=== PATIENT | female | born 1940 | race Caucasian/White ===

== ENCOUNTER 2016-03-04 16:45 | Emergency (ER) | payer MEDICARE ==
[~2016-03-04] VITALS: Ht 157.5 cm; Wt 93.6 kg
[~2016-03-04 16:45] MED LIST: ALIG4CAP PO; CITRTAB7 PO; LACTCAP8 PO; METO50TA PO; POTA10CA PO
[2016-03-04 16:48] VITALS: BP 177/93; PULSE 78; RESP 18; TEMP 98.9; O2SAT 94
[2016-03-04] MEDS ORDERED: DEXT1CAP5 PO (17:05)
--- NOTE | 2016-03-04 17:05 | PD ---
HPI Chief Complaint: Respiratory Symptoms Time Seen by Provider: 16:56 Travel History International Travel<30 days: No Contact w/Intl Traveler<30days: No Traveled to known affect area: No History of Present Illness HPI 75 year-old woman presents emergency department complaining of cough. She states that she's had cough for the past several days and felt poorly. No fevers or chills. No chest pain. No trouble breathing. No history of lung disease. History Past Medical History Narrative Medical From patient: Lymphedema Fibromyalgia Hypertension : 2 Para: 2 Social History Alcohol Use: No Tobacco Use: No Allergies-Medications (Allergen,Severity, Reaction): Coded Allergies: Markle (Verified Allergy, Severe, 03/04/16) Aspirin (Verified Allergy, Severe, 03/04/16) Cat Dander (Verified Allergy, Severe, 03/04/16) Coffee (Verified Allergy, Severe, 03/04/16) Egg Yolk (Verified Allergy, Severe, 03/04/16) Gluten (Verified Allergy, Severe, 03/04/16) Grass (Verified Allergy, Severe, 03/04/16) Iodine (Verified Allergy, Severe, 03/04/16) Morphine (Verified Allergy, Severe, 03/04/16) Penicillin (Verified Allergy, Severe, 03/04/16) Shellfish (Verified Allergy, Severe, 03/04/16) UNKNOWN Histamine H2 Receptor Antagonist (Verified Allergy, Unknown, 03/04/16) UNKNOWN ANTIBIOTICS (Verified Adverse Reaction, Intermediate, MAKES HER VOMIT, 02/06) Advil (Verified Adverse Reaction, Intermediate, 03/04/16) NOSEBLEEDS Uncoded Allergies: beatriz (Allergy, Severe, 10/25/11) Reported Meds & Prescriptions Reported Meds & Active Scripts Active Reported Metoprolol Tartrate 50 Mg Tab 50 Mg PO HS Align (Lactobacillus Rhamnosus (GG)) 4 Mg Cap 4 Mg PO DAILY Potassium Chloride ER (Potassium Chloride) 10 Meq Cap 10 Meq PO DAILY Probiotic (Lactobacillus Acidophilus) 1 Cap Cap 1 Cap PO DAILY Citracal + D3 Maximum (Calcium Citrate-Vitamin D) 315-250 Mg-Unit Tab 1 Tab PO BID Review of Systems Except as stated in HPI: all other systems reviewed are Neg Physical Exam Narrative GENERAL: 75 year-old woman, no acute distress. SKIN: Warm and dry. HEAD: Atraumatic. Normocephalic. EYES: Pupils equal and round. No scleral icterus. No injection or drainage. ENT: No nasal bleeding or discharge. Mucous membranes pink and moist. TMs normal. Throat normal. NECK: Trachea midline. No JVD. CARDIOVASCULAR: Regular rate and rhythm. No murmur appreciated. RESPIRATORY: No accessory muscle use. Clear to auscultation. Breath sounds equal bilaterally. GASTROINTESTINAL: Abdomen soft, non-tender, nondistended. Hepatic and splenic margins not palpable. MUSCULOSKELETAL: No obvious deformities. Chronic edema. NEUROLOGICAL: Awake and alert. No obvious cranial nerve deficits. Motor grossly within normal limits. Normal speech. Data Data Last Documented VS Vital Signs Date Time Temp Pulse Resp B/P Pulse Ox O2 Delivery O2 Flow Rate FiO2 03/04/16 16:56 99 Room Air 03/04/16 16:48 98.9 78 18 177/93 [facility] Medical Decision Making Medical Screen Exam Complete: Yes Emergency Medical Condition: Yes Differential Diagnosis URI, bronchitis, pneumonia, CHF, other Narrative Course 75 year-old woman with cough cold symptoms for 3 days, no evidence of pneumonia. Recommend supportive treatment. Diagnosis Primary Impression: URI (upper respiratory infection) Qualified Code: J06.9 - Viral upper respiratory tract infection Additional Instructions: Follow-up with her primary doctor if not feeling better in the next 7-10 days. Return emergency department for any trouble breathing or any other new or worsening symptoms. Use Robitussin-DM as needed for cough. Med/Other Pt SpecificInfo: Prescription(s) given Scripts Dextromethorphan-Guaifenesin (Robitussin Cough Chest Congestion)10-200 Mg Cap1 Cap PO Q6H PRN (CHEST CONGESTION AND/OR COUGH) #20 CAP Ref 0 Prov:Blu Oneal MD 03/04/16 Disposition: 01 DISCHARGE HOME Condition: Stable Blu Oneal MD Mar 04, 2016 17:05
[2016-03-04] MEDS ORDERED: OMEP20TA PO (17:07)
== END 2016-03-04 17:20 | disposition home or self-care (01) ==
LOC: PHED 16:45
DX: J06.9 Acute upper respiratory infection, unspecified (principal)
CPT/HCPCS: 99283

== ENCOUNTER → 2016-04-12 | Outpatient (CLI) | payer MEDICARE ==
[~2016-04-12] MED LIST changes: -ALIG4CAP PO; -CITRTAB7 PO; +DEXT1CAP5 PO; -LACTCAP8 PO; +OMEP20TA PO
[2016-04-12 12:41] LABS: BASOPHIL # 0.1 TH/MM3 (0-0.2); BASOPHIL % 1.3 % (0.0-2.0); EOSINOPHIL # 0.2 TH/MM3 (0-0.4); EOSINOPHIL % 3.2 % (0.0-4.0); HEMATOCRIT 38.2 % (35.0-46.0); HEMO FLAGS DIFF FINAL; LYMPHOCYTE # 2.7 TH/MM3 (1.0-4.8); MEAN CELL VOLUME 86.5 FL (80.0-100.0); MEAN CORPUSCULAR HEMOGLOBIN 29.3 PG (27.0-34.0); MEAN CORPUSCULAR HGB CONC 33.8 % (32.0-36.0); MONO % 6.4 % (0.0-8.0); NEUT % 47.1 % (16.0-70.0); PLATELET COUNT 342 TH/MM3 (150-450); RED BLOOD COUNT 4.42 MIL/MM3 (4.00-5.30); RED CELL DISTRIBUTION WIDTH 16.7 % (11.6-17.2); WHITE BLOOD COUNT 6.4 TH/MM3 (4.0-11.0)
[2016-04-12 12:52] LABS: ALT (GPT) 28 U/L (10-53); ANION GAP 9 MEQ/L (5-15); AST (GOT) 24 U/L (15-37); BICARBONATE 26.1 MEQ/L (21.0-32.0); BLOOD UREA NITROGEN 6 MG/DL (7-18); CHLORIDE 105 MEQ/L (98-107); GLOMERULAR FILTRATION RATE 62 ML/MIN (>89); GLUCOSE,FASTING 88 MG/DL (74-99); POTASSIUM 4.2 MEQ/L (3.5-5.1); SODIUM (NA) 140 MEQ/L (136-145)
[2016-04-12 13:02] LABS: ALKALINE PHOSPHATASE 63 U/L (45-117); HDL CHOLESTEROL 43.4 MG/DL (40.0-60.0); LDL CHOLESTEROL 106 MG/DL (0-99); TOTAL BILIRUBIN ADULT 0.4 MG/DL (0.2-1.0)
== END ==
LOC: PLAB 09:37
PROVIDERS: ATTEND Internal Medicine
DX: I10 Essential (primary) hypertension (principal); R53.83 Other fatigue; E78.2 Mixed hyperlipidemia
CPT/HCPCS: 36415; 80053; 80061; 84443; 85025

== ENCOUNTER → 2016-12-21 | Outpatient (CLI) | payer MEDICARE ==
[~2016-12-21] MED LIST changes: +CITRTAB7 PO; +PROT40TA PO; +TYLE325T PO; +[UNRECOGNIZED DRUG - OTHER]
[2016-12-21 13:50] LABS: INTERNATIONAL NORMALIZED RATIO 0.9 RATIO; PROTHROMBIN TIME - PATIENT 10.3 SEC (9.8-11.6)
[2016-12-21 15:57] LABS: HEMATOCRIT 40.4 % (35.0-46.0); HEMOGLOBIN 13.4 GM/DL (11.6-15.3); MEAN CELL VOLUME 88.3 FL (80.0-100.0); MEAN CORPUSCULAR HEMOGLOBIN 29.2 PG (27.0-34.0); MEAN CORPUSCULAR HGB CONC 33.1 % (32.0-36.0); MEAN PLATELET VOLUME 7.9 FL (7.0-11.0); PLATELET COUNT 361 TH/MM3 (150-450); RED BLOOD COUNT 4.57 MIL/MM3 (4.00-5.30); RED CELL DISTRIBUTION WIDTH 16.2 % (11.6-17.2); WHITE BLOOD COUNT 9.1 TH/MM3 (4.0-11.0)
== END ==
LOC: PLAB 11:58
PROVIDERS: ATTEND Urology
DX: D30.00 Benign neoplasm of unspecified kidney (principal)
CPT/HCPCS: 36415; 85027; 85610; 85730

== ENCOUNTER 2016-12-23 06:27 | Day surgery (SDC) | payer MEDICARE ==
[~2016-12-23] VITALS: Ht 154.9 cm; Wt 90.9 kg
[2016-12-23] VITALS (12 sets, daily range): BP systolic 126–178; BP diastolic 51–96; PULSE 58–82; RESP 18–21; TEMP 97.3–97.6; O2SAT 92–97
[~2016-12-23 06:27] MED LIST changes: -CITRTAB7 PO; -OMEP20TA PO; +OMEP20TA93 PO; -PROT40TA PO; -TYLE325T PO; -[UNRECOGNIZED DRUG - OTHER]
[2016-12-23] MEDS ORDERED: CITRTAB7 PO (06:49)
[2016-12-23] MEDS ORDERED: PROT40TA PO (06:49)
[2016-12-23] MEDS ORDERED: TYLE325T PO (06:49)
[2016-12-23] MEDS ORDERED: [UNRECOGNIZED DRUG - OTHER] (06:49)
[2016-12-23] MEDS ORDERED: SODIUM CHLOR 0.9% 1000 ML INJ 1,000 ML IV SCH (07:00)
[2016-12-23] MEDS ORDERED: LIDOCAINE 1%/EPINEPHrine 1:100,000 SOLN 20 ML VIAL ONE (07:20)
[2016-12-23] MEDS ORDERED: MIDAZOLAM HCL 2 MG/2 ML VIAL ONE (07:43)
--- NOTE | 2016-12-23 09:47 | RADRPT ---
EXAM DATE/TIME: 12/23/2016 09:07 [facility] COMPARISON: No previous studies available for comparison. INDICATIONS : Patient for a CT biopsy unable to get IV access. MEDICAL HISTORY : 1. Fibromyalgia 2. GERD 3. lymphedemia 4. breast ca SURGICAL HISTORY : 1. Hernia repair 2. Hysterectomy 3. rt breast lumpectomy 4. colon resction 5. cholecysectomy ENCOUNTER: Initial ACUITY: 1 day PAIN SCORE: 0/10 IMAGE SERIES: 0 ACCESS: Left basilic vein DEVICE(S): 1.) 3/4 [place] Dilator PROCEDURE : 1. Ultrasound guided venous access. The risks, benefits and alternatives to the procedure were explained and verbal and written consent w as obtained. The site was prepped in sterile fashion. Full sterile technique was used, including ca p, mask, sterile gloves and gown and a large sterile sheet. Hand hygiene and 2% chlorhexidine and/or betadine/alcohol prep was utilized per protocol for cutaneous antisepsis. Sterile gel and sterile p robe cover were utilized for ultrasound guidance. The skin and subcutaneous tissues were infiltrate d with local anesthetic solution. With ultrasound guidance the prescribed vein was punctured for venous access. A 4 [place] dilator was placed and was flushed and locked with heparin. The patient tolerated procedure well and there were n o complications. CONCLUSION: Uncomplicated ultrasound guided venous access. Gaston Ramirez MD on December 23, 2016 at 9:45 Board Certified Radiologist. This report was verified electronically.
--- NOTE | 2016-12-23 09:47 | RADRPT ---
EXAM DATE/TIME: 12/23/2016 09:07 [facility] COMPARISON: No previous studies available for comparison. INDICATIONS : Patient for a CT biopsy unable to get IV access. MEDICAL HISTORY : 1. Fibromyalgia 2. GERD 3. lymphedemia 4. breast ca SURGICAL HISTORY : 1. Hernia repair 2. Hysterectomy 3. rt breast lumpectomy 4. colon resction 5. cholecysectomy ENCOUNTER: Initial ACUITY: 1 day PAIN SCORE: 0/10 IMAGE SERIES: 0 ACCESS: Left basilic vein DEVICE(S): 1.) 3/4 [place] Dilator PROCEDURE : 1. Ultrasound guided venous access. The risks, benefits and alternatives to the procedure were explained and verbal and written consent w as obtained. The site was prepped in sterile fashion. Full sterile technique was used, including ca p, mask, sterile gloves and gown and a large sterile sheet. Hand hygiene and 2% chlorhexidine and/or betadine/alcohol prep was utilized per protocol for cutaneous antisepsis. Sterile gel and sterile p robe cover were utilized for ultrasound guidance. The skin and subcutaneous tissues were infiltrate d with local anesthetic solution. With ultrasound guidance the prescribed vein was punctured for venous access. A 4 [place] dilator was placed and was flushed and locked with heparin. The patient tolerated procedure well and there were n o complications. CONCLUSION: Uncomplicated ultrasound guided venous access. Gaston Ramirez MD on December 23, 2016 at 9:45 Board Certified Radiologist. This report was verified electronically.
[2016-12-23 12:19] LABS: BASOPHIL # 0.1 TH/MM3 (0-0.2); BASOPHIL % 1.1 % (0.0-2.0); EOSINOPHIL # 0.3 TH/MM3 (0-0.4); EOSINOPHIL % 3.5 % (0.0-4.0); HEMATOCRIT 37.4 % (35.0-46.0); HEMOGLOBIN 12.5 GM/DL (11.6-15.3); LYMPH % 39.1 % (9.0-44.0); LYMPHOCYTE # 3.2 TH/MM3 (1.0-4.8); MEAN CORPUSCULAR HEMOGLOBIN 29.4 PG (27.0-34.0); MEAN CORPUSCULAR HGB CONC 33.4 % (32.0-36.0); MEAN PLATELET VOLUME 7.4 FL (7.0-11.0); MONO % 7.2 % (0.0-8.0); MONOCYTE # 0.6 TH/MM3 (0-0.9); NEUT % 49.1 % (16.0-70.0); PLATELET COUNT 311 TH/MM3 (150-450); RED BLOOD COUNT 4.25 MIL/MM3 (4.00-5.30); RED CELL DISTRIBUTION WIDTH 15.8 % (11.6-17.2); WHITE BLOOD COUNT 8.2 TH/MM3 (4.0-11.0)
--- NOTE | 2016-12-23 13:57 | RADRPT ---
EXAM DATE/TIME: 12/23/2016 10:19 [facility] COMPARISON: No previous studies available for comparison. INDICATIONS : Right renal cyst SEDATION TIME: 45 minutes MEDICATION(S): 1.) 3.5 mg midazolam (Versed) IV 2.) 175 mcg fentanyl (Sublimaze) IV DEVICE(S): 1.) 16 gauge Hunt blunt needle 10cm 2.) 18 gauge Hunt blunt needle 15cm FLUID: Total volume of 2 cc of red fluid was removed. Fluid was sent for laboratory ordered studies. MEDICAL HISTORY : Carcinoma, breast. SURGICAL HISTORY : Hysterectomy. Colon resection. ENCOUNTER: Initial ACUITY: 1 day PAIN SCORE: 0/10 LOCATION: Right flank PROCEDURE: 1.) Conscious sedation with continuous EKG and oximetry monitoring. PROCEDURE : CT guided right renal cyst aspiration. The risks, benefits and alternatives to the procedure were explained and verbal and written consent w as obtained. Using automated exposure control and adjustment of the mA and/or kV according to patien t size, radiation dose was kept as low as reasonably achievable to obtain optimal diagnostic quality images. The site was prepped in sterile fashion. Full sterile technique was used, including cap, ma sk, sterile gloves and gown and a large sterile sheet. Hand hygiene and 2% chlorhexidine and/or beta dine/alcohol prep was utilized per protocol for cutaneous antisepsis. The skin and subcutaneous tiss ues were infiltrated with local anesthetic solution. DICOM format image data is available electronic ally for review and comparison. An 18 gauge needle was passed into the right renal cyst with CT guidance. 2 cc of reddish fluid was a spirated and the cyst appear to decrease in size. The fluid was sent for cytology. The patient tolera kris the procedure well without palpitations. CONCLUSION: Uncomplicated CT-guided right renal cyst aspiration as above. Duran Pitts MD on December 23, 2016 at 13:53 Board Certified Radiologist. This report was verified electronically.
== END 2016-12-23 16:25 | disposition home or self-care (01) ==
LOC: HRAD 06:27 → HRIP 06:28 → HRAD 16:25
PROVIDERS: ATTEND Urology
DX: N28.1 Cyst of kidney, acquired (principal); M79.7 Fibromyalgia; K21.9 Gastro-esophageal reflux disease without esophagitis; Z85.3 Personal history of malignant neoplasm of breast
CPT/HCPCS: 36410; 50390; 76937; 77012; 85025; 88173; 99152; 99153; J2250; J3010; J7030

== ENCOUNTER 2017-02-25 07:54 | Emergency (ER) | payer MEDICARE ==
[~2017-02-25] VITALS: Ht 157.5 cm; Wt 87.0 kg
[~2017-02-25 07:54] MED LIST changes: +CITRTAB7 PO; -DEXT1CAP5 PO; -OMEP20TA93 PO; -POTA10CA PO; +PROT40TA PO; +TYLE325T PO; +[UNRECOGNIZED DRUG - OTHER]
[2017-02-25 07:56] VITALS: BP 203/86; PULSE 63; RESP 16; TEMP 97.7; O2SAT 97
--- NOTE | 2017-02-25 08:18 | PD ---
HPI Chief Complaint: Cold / Flu Symptoms Time Seen by Provider: 08:06 Travel History International Travel<30 days: No Contact w/Intl Traveler<30days: No Traveled to known affect area: No History of Present Illness HPI The patient was seen and examined in the presence of the nurse. This patient complains of cough. She's had 2 days of cough. She also has congestion and runny nose. She describes a chronic type of diarrhea. Had some nausea earlier. Denies it now. Not having abdominal pain. Symptoms severity is moderate. No alleviating factors. She has no history of smoking. She reports that a home care attendant did a chest x-ray in the last couple of years and said that her lungs were full of scar tissue. No exacerbating factors. PFSH Past Medical History Hx Anticoagulant Therapy: No Heart Rhythm Problems: No Cancer: Yes (BREAST) Cardiac Catheterization: Yes Cardiovascular Problems: Yes (HTN) High Cholesterol: No Congestive Heart Failure: No Diabetes: No Diminished Hearing: No Gastrointestinal Disorders: Yes GERD: Yes Hiatal Hernia: Yes Hypertension: Yes Kidney Stones: Yes (2 STONES CURRENTLY) Medical other: Yes (VENOUS INSUFFICIENCY LYMPHEMEMA AND FIBROMYALGIA) Musculoskeletal: Yes (FIBROMYALGIA) Neurologic: No Psychiatric: No Respiratory: No Immunizations Current: Yes Migraines: No Seizures: No Thyroid Disease: No Ulcer: No Influenza Vaccination: No ?: Not : 2 Para: 2 Past Surgical History Abdominal Surgery: Yes (small intestine) Cardiac Surgery: Yes Cholecystectomy: Yes Coronary Artery Bypass Graft: No Endocrine Surgery: Yes (right breast mastectomy w/ reconstruction, lobectomy left) Gynecologic Surgery: Yes (left ovary removed) Hysterectomy: Yes Joint Replacement: Yes ( R KNEE AND ROTATOR CUFF) Pacemaker: No Other Surgery: Yes (lymph nodes removed 32) Social History Alcohol Use: No Tobacco Use: No Substance Use: No Allergies-Medications (Allergen,Severity, Reaction): Coded Allergies: almond (Verified Allergy, Severe, 02/25/17) aspirin (Verified Allergy, Severe, 02/25/17) cat dander (Verified Allergy, Severe, 02/25/17) coffee (Coffea arabica) (Verified Allergy, Severe, 02/25/17) egg yolk (Verified Allergy, Severe, 02/25/17) gluten (Verified Allergy, Severe, 02/25/17) grass pollen (Verified Allergy, Severe, 02/25/17) iodine (Verified Allergy, Severe, 02/25/17) morphine (Verified Allergy, Severe, 02/25/17) penicillin G (Verified Allergy, Severe, 02/25/17) potassium iodide (Verified Allergy, Severe, 02/25/17) povidone-iodine (Verified Allergy, Severe, 02/25/17) shellfish derived (Verified Allergy, Severe, 02/25/17) UNKNOWN sodium iodide (Verified Allergy, Severe, 02/25/17) sodium iodide (Verified Allergy, Severe, 02/25/17) cimetidine (Verified Allergy, Unknown, 02/25/17) UNKNOWN famotidine (Verified Allergy, Unknown, 02/25/17) UNKNOWN ranitidine (Verified Allergy, Unknown, 02/25/17) UNKNOWN ibuprofen (Verified Adverse Reaction, Intermediate, 02/25/17) NOSEBLEEDS Uncoded Allergies: beatriz (Allergy, Severe, 10/25/11) ANTIBIOT (Adverse Reaction, Intermediate, MAKES HER VOMIT, 10/06/16) Reported Meds & Prescriptions Reported Meds & Active Scripts Active Reported Citracal + D3 Maximum (Calcium Citrate-Vitamin D) 315-250 Mg-Unit Tab 1 Tab PO BID Tylenol (Acetaminophen) 325 Mg Tab 325 Mg PO Q4H PRN Protonix (Pantoprazole Sodium) 40 Mg Tab 40 Mg PO DAILY Metoprolol Tartrate 50 Mg Tab 50 Mg PO HS Review of Systems General / Constitutional: No: Fever Eyes: No: Visual changes HENT: Positive: Congestion, No: Headaches Cardiovascular: No: Chest Pain or Discomfort Respiratory: Positive: Cough, No: Shortness of Breath Gastrointestinal: Positive: Nausea, Diarrhea, No: Abdominal Pain Genitourinary: No: Dysuria Musculoskeletal: No: Pain Skin: No Rash Neurologic: No: Weakness Psychiatric: No: Depression Endocrine: No: Polydipsia Hematologic/Lymphatic: No: Easy Bruising Physical Exam Narrative GENERAL: Well-nourished, well-developed patient in no apparent distress. SKIN: Focused skin assessment reveals no rash and nodules. Skin is Warm and dry. HEAD: Atraumatic. Normocephalic. EYES: Pupils equal and round. No scleral icterus. No injection or drainage. ENT: No nasal bleeding or discharge. Mucous membranes pink and moist. Throat clear. Nares shows rhinorrhea is clear NECK: Trachea midline. No JVD. No meningeal signs CARDIOVASCULAR: Regular rate and rhythm. No murmur appreciated. RESPIRATORY: No accessory muscle use. Clear to auscultation. Breath sounds equal bilaterally. GASTROINTESTINAL: Abdomen soft, non-tender, nondistended. Hepatic and splenic margins not palpable. MUSCULOSKELETAL: No obvious deformities. No clubbing. No cyanosis. No edema. NEUROLOGICAL: Awake and alert. No obvious cranial nerve deficits. Motor grossly within normal limits. Normal speech. PSYCHIATRIC: Appropriate mood and affect; insight and judgment normal. Data Data Last Documented VS Vital Signs Date Time Temp Pulse Resp B/P (MAP) Pulse Ox O2 Delivery O2 Flow Rate FiO2 02/25/17 11:01 74 18 149/63 (91) 98 Room Air 02/25/17 07:56 97.7 Orders Orders Chest, Single Ap (02/25/17 ) Influenzae A/B Antigen (02/25/17 08:14) Iv Access Insert/Monitor (02/25/17 09:54) Complete Blood Count With Diff (02/25/17 09:54) Basic Metabolic Panel (Bmp) (02/25/17 09:54) Ct Thorax/ Chest Wo Iv Contras (02/25/17 ) Labs Laboratory Tests Test 02/25/17 10:10 White Blood Count 7.1 TH/MM3 Red Blood Count 4.77 MIL/MM3 Hemoglobin 13.6 GM/DL Hematocrit 42.0 % Mean Corpuscular Volume 88.1 FL Mean Corpuscular Hemoglobin 28.6 PG Mean Corpuscular Hemoglobin Concent 32.5 % Red Cell Distribution Width 15.2 % Platelet Count 328 TH/MM3 Mean Platelet Volume 7.8 FL Neutrophils (%) (Auto) 55.8 % Lymphocytes (%) (Auto) 32.2 % Monocytes (%) (Auto) 6.7 % Eosinophils (%) (Auto) 3.6 % Basophils (%) (Auto) 1.7 % Neutrophils # (Auto) 3.9 TH/MM3 Lymphocytes # (Auto) 2.3 TH/MM3 Monocytes # (Auto) 0.5 TH/MM3 Eosinophils # (Auto) 0.3 TH/MM3 Basophils # (Auto) 0.1 TH/MM3 CBC Comment DIFF FINAL Differential Comment Blood Urea Nitrogen 7 MG/DL Creatinine 0.88 MG/DL Random Glucose 88 MG/DL Calcium Level 8.2 MG/DL Sodium Level 136 MEQ/L Potassium Level 5.4 MEQ/L Chloride Level 106 MEQ/L Carbon Dioxide Level 21.5 MEQ/L Anion Gap 9 MEQ/L Estimat Glomerular Filtration Rate 62 ML/MIN MDM Medical Decision Making Medical Screen Exam Complete: Yes Emergency Medical Condition: Yes Medical Record Reviewed: Yes Differential Diagnosis Flu syndrome, bronchitis, pneumonia Narrative Course I have reviewed the patient's electronic medical record. Influenza swab is negative I reviewed her chest x-ray which the radiologist was concerned about metastatic spread given her history of breast cancer and recommended CT of chest. IV was placed CBC is normal Metabolic profile is normal other than mild hyperkalemia not requiring urgent treatment Chest CT did not reveal any evidence of metastatic spread. Chronic calcification as well as improvement in comparison from prior Patient arrived in systolic blood pressure of 203. She did not take her medications today. She reports white coat hypertension. Reassessment is 149 systolic Presentation is consistent with acute viral syndrome/bronchitis. I don't see indication for antibiotics. She does have coughing fits and I've written her an albuterol inhaler to use as needed Diagnosis Primary Impression: Acute viral syndrome Additional Impressions: Abnormal chest x-ray Cough Acute hyperkalemia Additional Instructions: The patient was advised to follow up with their physician and return if they worsen. Med/Other Pt SpecificInfo: Prescription(s) given Scripts Albuterol 18 GM Inh (Ventolin Hfa 18 GM Inh) 90 Mcg/Act Aer 2 PUFF INH Q4H Y for SHORTNESS OF BREATH, #1 INHALER 0 Refills Prov: Everton Richmond MD 02/25/17 Disposition: 01 DISCHARGE HOME Condition: Stable Everton Richmond MD Feb 25, 2017 08:18
[2017-02-25 08:24] VITALS: BP 174/94; PULSE 75; RESP 18; O2SAT 97
[2017-02-25 09:31] VITALS: BP 153/61; PULSE 76; RESP 18; O2SAT 98
--- NOTE | 2017-02-25 09:32 | RADRPT ---
EXAM DATE/TIME: 02/25/2017 08:24 [facility] COMPARISON: CHEST SINGLE AP, December 30, 2015, 14:43. INDICATIONS : Cough. MEDICAL HISTORY : Carcinoma, breast. SURGICAL HISTORY : Colon resection. Hysterectomy. ENCOUNTER: Initial ACUITY: 2 days PAIN SCORE: 0/10 LOCATION: Bilateral chest FINDINGS: The cardiac silhouette is enlarged in transverse diameter. There is prominence of the aortic knob is with calcification characteristic of atherosclerotic vascular disease. There are surgical clips in th e right axilla. There is calcification at the level of the right lateral chest wall unchanged. Lungs demonstrate increasing interstitial disease in the coarsening which could reflect lymphangitic spread of neoplasm. CT scan is recommended for further evaluation if clinically indicated. CONCLUSION: 1. Worsening interstitial disease is patient history breast carcinoma. Please see above. CT scan is r ecommended for further evaluation if clinically indicated. Jaycob Nickerson MD on February 25, 2017 at 9:28 Board Certified Radiologist. This report was verified electronically.
[2017-02-25 10:21] LABS: AUTOMATED NEUTROPHIL # 3.9 TH/MM3 (1.8-7.7); BASOPHIL # 0.1 TH/MM3 (0-0.2); BASOPHIL % 1.7 % (0.0-2.0); EOSINOPHIL # 0.3 TH/MM3 (0-0.4); EOSINOPHIL % 3.6 % (0.0-4.0); HEMOGLOBIN 13.6 GM/DL (11.6-15.3); LYMPH % 32.2 % (9.0-44.0); LYMPHOCYTE # 2.3 TH/MM3 (1.0-4.8); MEAN CELL VOLUME 88.1 FL (80.0-100.0); MEAN CORPUSCULAR HEMOGLOBIN 28.6 PG (27.0-34.0); MEAN CORPUSCULAR HGB CONC 32.5 % (32.0-36.0); MEAN PLATELET VOLUME 7.8 FL (7.0-11.0); MONO % 6.7 % (0.0-8.0); MONOCYTE # 0.5 TH/MM3 (0-0.9); NEUT % 55.8 % (16.0-70.0); PLATELET COUNT 328 TH/MM3 (150-450); RED BLOOD COUNT 4.77 MIL/MM3 (4.00-5.30); RED CELL DISTRIBUTION WIDTH 15.2 % (11.6-17.2); WHITE BLOOD COUNT 7.1 TH/MM3 (4.0-11.0)
[2017-02-25 10:31] LABS: BICARBONATE 21.5 MEQ/L (21.0-32.0); CALCIUM 8.2 MG/DL (8.5-10.1)
[2017-02-25 10:35] LABS: CREATININE 0.88 MG/DL (0.50-1.00)
--- NOTE | 2017-02-25 10:50 | RADRPT ---
EXAM DATE/TIME: 02/25/2017 10:11 [facility] COMPARISON: CT THORAX W/O CONTRAST, June 28, 2015, 20:41. INDICATIONS : Cough x 2 days. Abnormal chest x-ray. RADIATION DOSE: 12.84 CTDIvol (mGy) MEDICAL HISTORY : Carcinoma, breast. Gastroesophageal reflux disease. Diverticulitis. Hypertension. SURGICAL HISTORY : Mastectomy, right. Lobectomy.Cholecystectomy. Hysterectomy. ENCOUNTER: Initial ACUITY: 2 days PAIN SCALE: 2/10 LOCATION: Bilateral chest TECHNIQUE: Volumetric scanning of the chest was performed. Using automated exposure control and adjustment of t he mA and/or kV according to patient size, radiation dose was kept as low as reasonably achievable to obtain optimal diagnostic quality images. DICOM format image data is available electronically for r eview and comparison. Follow-up recommendations for detected pulmonary nodules are based at a minimum on nodule size and pa tient risk factors according to Fleischner Society Guidelines. FINDINGS: Interval improvement in the appearance of the lungs. There is no pleural effusion. There is mild pe ribronchial thickening without suspicious lung mass. There is no axillary adenopathy. Surgical clips right axilla Calcified mass right breast Minimal nonspecific mediastinal adenopathy Portion of the liver and spleen identified are free of focal defect Extensive calcifications origin of the SMA Review of bone windows reveals only degenerative changes. CONCLUSION: Improvement when compared to 06/28/15 with less interstitial changes resolution of the left pleural eff usion There is no evidence of metastatic disease.. Tim Krueger MD FACR on February 25, 2017 at 10:45 Board Certified Radiologist. This report was verified electronically.
[2017-02-25 11:01] VITALS: BP 149/63; PULSE 74; RESP 18; O2SAT 98
[2017-02-25] MEDS ORDERED: VENTAER INH (11:36)
[2017-02-25] MEDS ORDERED: ZITHTAB PO (12:01)
== END 2017-02-25 12:12 | disposition home or self-care (01) ==
LOC: PHED 07:54
DX: B34.9 Viral infection, unspecified (principal); R91.8 Other nonspecific abnormal finding of lung field; R05 Cough; E87.5 Hyperkalemia; I10 Essential (primary) hypertension; K21.9 Gastro-esophageal reflux disease without esophagitis; M79.7 Fibromyalgia; Z85.3 Personal history of malignant neoplasm of breast
CPT/HCPCS: 71045; 71250; 80048; 85025; 87804; 99284

== ENCOUNTER 2017-04-18 09:56 | Observation (INO) | payer MEDICARE ==
[~2017-04-18] VITALS: Ht 154.9 cm; Wt 85.5 kg
[2017-04-18] VITALS (9 sets, daily range): BP systolic 163–218; BP diastolic 70–89; PULSE 67–73; RESP 16–20; TEMP 97.8–98; O2SAT 97–99
[~2017-04-18 09:56] MED LIST changes: +VENTAER INH; +ZITHTAB PO; -[UNRECOGNIZED DRUG - OTHER]
--- NOTE | 2017-04-18 11:42 | PD ---
HPI Chief Complaint: Pain: Acute or Chronic Time Seen by Provider: 11:17 Travel History International Travel<30 days: No Contact w/Intl Traveler<30days: No Traveled to known affect area: No History of Present Illness HPI 76-year-old female presents to the emergency department for evaluation of left- sided chest pain that radiates to the left arm that has been intermittent for approximately 1-1.5 months. She cannot recall any exacerbating or alleviating factors. Current pain is 7/10. She rates it as a chest tightness. Patient reports history of hypertension, lymphedema. She takes metoprolol at night and she did take it last night. Patient denies any significant family history of cardiac disease. Patient is not currently established with a power transformer assembler, but states that she will be referred to Dr. Link. She denies any recent stress testing or cardiac catheterization. Patient states she is allergic to aspirin and cannot take this. Moderate severity. Patient denies any recent surgery or travel. No new leg edema. No hemoptysis. No history of DVT or PE. Patient states symptoms started shortly after having the flu. PFSH Past Medical History Hx Anticoagulant Therapy: No Heart Rhythm Problems: No Cancer: Yes (BREAST) Cardiac Catheterization: Yes Cardiovascular Problems: Yes High Cholesterol: No Congestive Heart Failure: No Diabetes: No Diminished Hearing: No Gastrointestinal Disorders: Yes GERD: Yes Hiatal Hernia: Yes Hypertension: Yes Kidney Stones: Yes (2 STONES CURRENTLY) Musculoskeletal: Yes (FIBROMYALGIA) Neurologic: No Psychiatric: No Respiratory: No Immunizations Current: Yes Migraines: No Seizures: No Thyroid Disease: No Ulcer: No : 2 Para: 2 Past Surgical History Abdominal Surgery: Yes (small intestine) Cardiac Surgery: Yes Cholecystectomy: Yes Coronary Artery Bypass Graft: No Endocrine Surgery: Yes (right breast mastectomy w/ reconstruction, lobectomy left) Gynecologic Surgery: Yes (left ovary removed) Hysterectomy: Yes Joint Replacement: Yes ( R KNEE AND ROTATOR CUFF) Pacemaker: No Other Surgery: Yes (lymph nodes removed 32) Social History Alcohol Use: No Tobacco Use: No Substance Use: No Allergies-Medications (Allergen,Severity, Reaction): Coded Allergies: almond (Verified Allergy, Severe, 04/18/17) aspirin (Verified Allergy, Severe, 04/18/17) cat dander (Verified Allergy, Severe, 04/18/17) coffee (Coffea arabica) (Verified Allergy, Severe, 04/18/17) egg yolk (Verified Allergy, Severe, 04/18/17) gluten (Verified Allergy, Severe, 04/18/17) grass pollen (Verified Allergy, Severe, 04/18/17) iodine (Verified Allergy, Severe, 04/18/17) morphine (Verified Allergy, Severe, 04/18/17) penicillin G (Verified Allergy, Severe, 04/18/17) potassium iodide (Verified Allergy, Severe, 04/18/17) povidone-iodine (Verified Allergy, Severe, 04/18/17) shellfish derived (Verified Allergy, Severe, 04/18/17) UNKNOWN sodium iodide (Verified Allergy, Severe, 04/18/17) sodium iodide (Verified Allergy, Severe, 04/18/17) cimetidine (Verified Allergy, Unknown, 04/18/17) UNKNOWN famotidine (Verified Allergy, Unknown, 04/18/17) UNKNOWN ranitidine (Verified Allergy, Unknown, 04/18/17) UNKNOWN ibuprofen (Verified Adverse Reaction, Intermediate, 04/18/17) NOSEBLEEDS Uncoded Allergies: beatriz (Allergy, Severe, 10/25/11) ANTIBIOT (Adverse Reaction, Intermediate, MAKES HER VOMIT, 10/06/16) Reported Meds & Prescriptions Reported Meds & Active Scripts Active Reported Citracal + D3 Maximum (Calcium Citrate-Vitamin D) 315-250 Mg-Unit Tab 1 Tab PO BID Tylenol (Acetaminophen) 325 Mg Tab 650 Mg PO Q4H PRN Protonix (Pantoprazole Sodium) 40 Mg Tab 40 Mg PO DAILY Metoprolol Tartrate 50 Mg Tab 50 Mg PO HS Review of Systems Except as stated in HPI: all other systems reviewed are Neg Physical Exam Narrative GENERAL: Well-nourished, well-developed female patient, ambulatory. Afebrile. SKIN: Focused skin assessment warm/dry. HEAD: Normocephalic. Atraumatic. EYES: No scleral icterus. No injection or drainage. NECK: Supple, trachea midline. No JVD or lymphadenopathy. CARDIOVASCULAR: Regular rate and rhythm without murmurs, gallops, or rubs. Bilateral radial and pedal pulses are 2+. RESPIRATORY: Breath sounds equal bilaterally. No accessory muscle use. Lungs sounds are clear to auscultation. GASTROINTESTINAL: Abdomen soft, non-tender, nondistended. MUSCULOSKELETAL: No cyanosis, or edema. BACK: Nontender without obvious deformity. No CVA tenderness. Data Data Last Documented VS Vital Signs Date Time Temp Pulse Resp B/P (MAP) Pulse Ox O2 Delivery O2 Flow Rate FiO2 04/18/17 12:18 67 18 201/86 (124) 98 Room Air 04/18/17 11:23 97.8 Orders Orders Electrocardiogram (04/18/17 11:31) Basic Metabolic Panel (Bmp) (04/18/17 11:31) Ckmb (Isoenzyme) Profile (04/18/17 11:31) Complete Blood Count With Diff (04/18/17 11:31) Magnesium (Mg) (04/18/17 11:31) Prothrombin Time / Inr (Pt) (04/18/17 11:31) Act Partial Throm Time (Ptt) (04/18/17 11:31) Troponin I (04/18/17 11:31) Chest, Single Ap (04/18/17 11:31) Ecg Monitoring (04/18/17 11:31) Bilateral Bp Monitoring (04/18/17 11:31) Iv Access Insert/Monitor (04/18/17 11:31) Oximetry (04/18/17 11:31) Oxygen Administration (04/18/17 11:31) Sodium Chloride 0.9% Flush (Ns Flush) (04/18/17 11:45) Labetalol Inj (Trandate Inj) (04/18/17 11:45) CKMB (04/18/17 12:10) CKMB% (04/18/17 12:10) Admit Order (Ed Use Only) (04/18/17 13:15) Labs Laboratory Tests Test 04/18/17 12:10 White Blood Count 9.5 TH/MM3 Red Blood Count 4.76 MIL/MM3 Hemoglobin 13.8 GM/DL Hematocrit 41.4 % Mean Corpuscular Volume 87.0 FL Mean Corpuscular Hemoglobin 29.0 PG Mean Corpuscular Hemoglobin Concent 33.4 % Red Cell Distribution Width 15.4 % Platelet Count 318 TH/MM3 Mean Platelet Volume 7.8 FL Neutrophils (%) (Auto) 54.5 % Lymphocytes (%) (Auto) 32.7 % Monocytes (%) (Auto) 6.7 % Eosinophils (%) (Auto) 5.1 % Basophils (%) (Auto) 1.0 % Neutrophils # (Auto) 5.2 TH/MM3 Lymphocytes # (Auto) 3.1 TH/MM3 Monocytes # (Auto) 0.6 TH/MM3 Eosinophils # (Auto) 0.5 TH/MM3 Basophils # (Auto) 0.1 TH/MM3 CBC Comment DIFF FINAL Differential Comment Prothrombin Time 9.9 SEC Prothromb Time International Ratio 1.0 RATIO Activated Partial Thromboplast Time 23.6 SEC Blood Urea Nitrogen 9 MG/DL Creatinine 0.84 MG/DL Random Glucose 90 MG/DL Calcium Level 8.9 MG/DL Magnesium Level 2.2 MG/DL Sodium Level 139 MEQ/L Potassium Level 4.1 MEQ/L Chloride Level 105 MEQ/L Carbon Dioxide Level 28.3 MEQ/L Anion Gap 6 MEQ/L Estimat Glomerular Filtration Rate 66 ML/MIN Total Creatine Kinase 104 U/L Creatine Kinase MB LESS THAN 0.5 NG/ML Troponin I LESS THAN 0.02 NG/ML MDM Medical Decision Making Medical Screen Exam Complete: Yes Emergency Medical Condition: Yes Medical Record Reviewed: Yes Interpretation(s) chest x-ray - stable diffuse reticulonodular interstitial prominence Differential Diagnosis ACS versus chest wall pain versus pneumonia versus pneumothorax Narrative Course 76-year-old female presents to the emergency department for evaluation of intermittent left-sided chest pain that radiates to the left arm for 1-1.5 months after having the flu. Patient is allergic to aspirin. EKG shows sinus rhythm, heart rate 68, no acute ST changes. CBC, BMP, magnesium, CK, troponin, PTT, PT/INR, chest x-ray are ordered and pending. Patient is given labetalol 10 mg IV for hypertension. CBC shows no acute abnormality. BMP is unremarkable. Magnesium is 2.2. CK is 104. Troponin is less than 0.02. Coags are unremarkable. Chest x-ray shows stable diffuse reticulonodular interstitial prominence. The patient will be admitted to the chest pain center for further evaluation. She verbalizes agreement to this. Diagnosis Primary Impression: Chest pain Qualified Codes: R07.9 - Chest pain, unspecified Admitting Information Admitting Physician Requests: Tessa Caceres Apr 18, 2017 11:42
[2017-04-18] MEDS ORDERED: LABETALOL HCL 100 MG/20 ML VIAL IV PUSH ONE (11:45)
[2017-04-18] MEDS ORDERED: SODIUM CHLORIDE 0.9% FLUSH 10 ML FLUSH IVF PRN (11:45)
[2017-04-18 12:27] LABS: AUTOMATED NEUTROPHIL # 5.2 TH/MM3 (1.8-7.7); BASOPHIL # 0.1 TH/MM3 (0-0.2); EOSINOPHIL # 0.5 TH/MM3 (0-0.4); EOSINOPHIL % 5.1 % (0.0-4.0); HEMATOCRIT 41.4 % (35.0-46.0); HEMOGLOBIN 13.8 GM/DL (11.6-15.3); LYMPH % 32.7 % (9.0-44.0); LYMPHOCYTE # 3.1 TH/MM3 (1.0-4.8); MEAN CORPUSCULAR HGB CONC 33.4 % (32.0-36.0); MEAN PLATELET VOLUME 7.8 FL (7.0-11.0); MONO % 6.7 % (0.0-8.0); MONOCYTE # 0.6 TH/MM3 (0-0.9); NEUT % 54.5 % (16.0-70.0); PLATELET COUNT 318 TH/MM3 (150-450); RED BLOOD COUNT 4.76 MIL/MM3 (4.00-5.30); RED CELL DISTRIBUTION WIDTH 15.4 % (11.6-17.2); WHITE BLOOD COUNT 9.5 TH/MM3 (4.0-11.0)
--- NOTE | 2017-04-18 12:28 | RADRPT ---
EXAM DATE/TIME: 04/18/2017 11:49 [facility] COMPARISON: CHEST SINGLE AP, June 28, 2015, 11:25. CT THORAX W/O CONTRAST, June 28, 2015, 20:41. CHEST SINGLE AP, February 25, 2017, 8:24. CT THORAX W/O CONTRAST, February 25, 2017, 10:11. INDICATIONS : Chest pain. MEDICAL HISTORY : Hypertension. Carcinoma, breast. SURGICAL HISTORY : Mastectomy, right. Cardiac cath. ENCOUNTER: Initial ACUITY: 1 day PAIN SCORE: 6/10 LOCATION: Bilateral chest FINDINGS: The lungs are stable with mild fairly symmetric reticular-nodular interstitial prominence. No evidenc e of alveolar consolidation or significant effusion. Surgical clips are again seen in the right breas t and axilla. Calcific right breast mass is again noted. CONCLUSION: Stable diffuse reticulonodular interstitial prominence. Jaycob Devine MD on April 18, 2017 at 12:24 Board Certified Radiologist. This report was verified electronically.
[2017-04-18 12:36] LABS: PROTHROMBIN TIME - PATIENT 9.9 SEC (9.8-11.6)
[2017-04-18 12:41] LABS: BICARBONATE 28.3 MEQ/L (21.0-32.0); BLOOD UREA NITROGEN 9 MG/DL (7-18); CALCIUM 8.9 MG/DL (8.5-10.1); CHLORIDE 105 MEQ/L (98-107); CREATININE 0.84 MG/DL (0.50-1.00); GLOMERULAR FILTRATION RATE 66 ML/MIN (>89); GLUCOSE,RANDOM 90 MG/DL (74-106); MAGNESIUM 2.2 MG/DL (1.5-2.5); SODIUM (NA) 139 MEQ/L (136-145)
[2017-04-18 12:44] LABS: TROPONIN I LESS THAN 0.02 NG/ML (0.02-0.05)
[2017-04-18] MEDS ORDERED: NITROGLYCERIN 0.4 MG SL 25 TABS/BTL SL PRN (13:30)
[2017-04-18] MEDS ORDERED: ONDANSETRON HCL 4 MG/2 ML VIAL IV PUSH PRN (13:30)
[2017-04-18] MEDS ORDERED: ACETAMINOPHEN 500 MG CPLT PO PRN (13:30)
--- NOTE | 2017-04-18 14:27 | HHI.HP ---
HPI Primary Care Physician Hiram Bonilla M.D. Chief Complaint Chest pain History of Present Illness 76-year-old female with history of hypertension and lymphedema presents to emergency room for further evaluation chest pain. Reports 4 episodes of chest pain with past 2-3 weeks. Last episode this morning upon awakening, approximately 0530. Location substernal with radiation to left anterior chest, left shoulder, and left arm. Chest pain described as pressure. Left shoulder and left arm pain described as "severe pain." Duration constant. Reports chest pressure duration approximately 4.5 hours, then pressure changed characteristic to "mild" chest tightness. Associated symptoms of "extreme fatigue." No associated symptoms of nausea, vomiting, dyspnea, or diaphoresis. No known precipitating or relieving factors. 3 prior chest pain episodes described as "exactly the same as this morning." Review of Systems General: No fatigue,weakness, fever, chills, recent illness, or change in appetite. Has been her general state of health. HEENT: No WRIGHT, no vision changes, no nasal congestion or drainage, no dysphasia CV: As stated above, currently reports "mild chest tightness." RESP: Chronic exertional sob, reporting never fully recovering s/p PNA in 2016. Followed up with college advisor for short time, reports cause of dyspnea never determined. No cough, wheeze, or asthma GI: No nausea, vomiting, or bowel changes. : No dysuria, urgency, or frequency. History of kidney stones. EXT: History of lymphedema and fibromyalgia. No paraesthesias MS: No discomfort or change in ROM NEURO: No change in memory, difficulty with balance, LOC, motor/sensory deficits PSYCH: No anxiety, depression SKIN: No rashes, no concerning lesions, chronic bilateral lower extremity rash/ discoloration Past Family Social History Allergies: Coded Allergies: almond (Verified Allergy, Severe, 04/18/17) aspirin (Verified Allergy, Severe, 04/18/17) cat dander (Verified Allergy, Severe, 04/18/17) coffee (Coffea arabica) (Verified Allergy, Severe, 04/18/17) egg yolk (Verified Allergy, Severe, 04/18/17) gluten (Verified Allergy, Severe, 04/18/17) grass pollen (Verified Allergy, Severe, 04/18/17) iodine (Verified Allergy, Severe, 04/18/17) morphine (Verified Allergy, Severe, 04/18/17) penicillin G (Verified Allergy, Severe, 04/18/17) potassium iodide (Verified Allergy, Severe, 04/18/17) povidone-iodine (Verified Allergy, Severe, 04/18/17) shellfish derived (Verified Allergy, Severe, 04/18/17) UNKNOWN sodium iodide (Verified Allergy, Severe, 04/18/17) sodium iodide (Verified Allergy, Severe, 04/18/17) cimetidine (Verified Allergy, Unknown, 04/18/17) UNKNOWN famotidine (Verified Allergy, Unknown, 04/18/17) UNKNOWN ranitidine (Verified Allergy, Unknown, 04/18/17) UNKNOWN ibuprofen (Verified Adverse Reaction, Intermediate, 04/18/17) NOSEBLEEDS Uncoded Allergies: beatriz (Allergy, Severe, 10/25/11) ANTIBIOT (Adverse Reaction, Intermediate, MAKES HER VOMIT, 10/06/16) Past Medical History Right breast cancer (1987- chemotherapy treatments), pneumonia, C. difficile ( 2015), lymphedema, fibromyalgia, kidney stones, hypertension Past Surgical History Right meniscectomy, cholecystectomy, 3 right knee surgeries, 2 right shoulder surgery, 1 left shoulder surgery, colectomy Reported Medications Reported Meds & Active Scripts Active Reported Citracal + D3 Maximum (Calcium Citrate-Vitamin D) 315-250 Mg-Unit Tab 1 Tab PO BID Tylenol (Acetaminophen) 325 Mg Tab 650 Mg PO Q4H PRN Protonix (Pantoprazole Sodium) 40 Mg Tab 40 Mg PO DAILY Metoprolol Tartrate 50 Mg Tab 50 Mg PO HS Active Ordered Medications Current Medications Medications (Trade) Dose Ordered Sig/Nilson Route Start Time Stop Time Status Last Admin (NS Flush) 2 ml UNSCH PRN IVF 04/18/17 11:45 04/18/17 12:19 (NS Flush) 2 ml BID IV FLUSH 04/18/17 21:00 UNV (Tylenol) 500 mg Q4H PRN PO 04/18/17 13:30 UNV (Zofran Inj) 4 mg Q6H PRN IV PUSH 04/18/17 13:30 UNV (Nitrostat Sl) 0.4 mg Q5M PRN SL 04/18/17 13:30 UNV Family History Noncontributory for early onset cardiovascular disease. Social History Known hypertension. No known coronary artery disease, hyperlipidemia, or diabetes. Lifelong nonsmoker. Denies any alcohol use. . Endorses an active lifestyle, active in her jain, and attempts to walk daily exercise. Past cardiac testing 2011 Exercise cardiac testing-Walked 2 minutes and 31 seconds, with upsloping st segments. Test determined low probability of ischemia. Never required cardiac catheterization. Physical Exam Vital Signs Vital Signs Date Time Temp Pulse Resp B/P (MAP) Pulse Ox O2 Delivery O2 Flow Rate FiO2 04/18/17 13:40 72 16 172/75 (107) 99 Room Air 04/18/17 12:18 67 18 201/86 (124) 98 Room Air 04/18/17 11:51 20 98 Room Air 04/18/17 11:23 97.8 72 18 218/86 (130) 99 Room Air 04/18/17 10:46 97.8 73 16 218/89 (132) 97 Physical Exam GENERAL: Alert WN, WD, NAD, pleasant, friendly, moderately obese elderly female HEAD: NC, AT EYES: Sclera clear, conjunctiva without injection ENT: Mucous membranes pink and moist CV: RRR, without murmur, rub, gallop, no JVD, S1-S2 no S3-S4. RESP: Clear lungs throughout bilateral, no crackles, wheeze, rhonchi, symmetrical chest rise, nonlabored, able to speak in full sentences ABD: Soft, NT, ND, no masses, positive bowel tones EXT: Pulses +24, bilateral lower +2 pitting edema MS: Normal tone 4 extremities, no obvious deformities, full range of motion NEURO: CN II through CN XII grossly intact, motor strength 5/5 PSYCH: A+O 3, pleasant affect, appropriate speech, mood, insight and judgment SKIN: Normal turgor, normal texture, no lesions, brisk cap refill, bilateral lower extremities maculopapular rash Laboratory Laboratory Tests Test 04/18/17 12:10 White Blood Count 9.5 Red Blood Count 4.76 Hemoglobin 13.8 Hematocrit 41.4 Mean Corpuscular Volume 87.0 Mean Corpuscular Hemoglobin 29.0 Mean Corpuscular Hemoglobin Concent 33.4 Red Cell Distribution Width 15.4 Platelet Count 318 Mean Platelet Volume 7.8 Neutrophils (%) (Auto) 54.5 Lymphocytes (%) (Auto) 32.7 Monocytes (%) (Auto) 6.7 Eosinophils (%) (Auto) 5.1 Basophils (%) (Auto) 1.0 Neutrophils # (Auto) 5.2 Lymphocytes # (Auto) 3.1 Monocytes # (Auto) 0.6 Eosinophils # (Auto) 0.5 Basophils # (Auto) 0.1 CBC Comment DIFF FINAL Differential Comment Prothrombin Time 9.9 Prothromb Time International Ratio 1.0 Activated Partial Thromboplast Time 23.6 Blood Urea Nitrogen 9 Creatinine 0.84 Random Glucose 90 Calcium Level 8.9 Magnesium Level 2.2 Sodium Level 139 Potassium Level 4.1 Chloride Level 105 Carbon Dioxide Level 28.3 Anion Gap 6 Estimat Glomerular Filtration Rate 66 Total Creatine Kinase 104 Creatine Kinase MB LESS THAN 0.5 Troponin I LESS THAN 0.02 Result Diagram: 04/18/17 1210 04/18/17 1210 Imaging Chest x-ray interpreted by radiologist as stable diffuse reticulonodular interstitial prominence. Course EKG Sinus rhythm, nonspecific ST changes Caprini VTE Risk Assessment Caprini VTE Risk Assessment: Mod/High Risk (score >= 2) Caprini Risk Assessment Model Point Value = 1 Point Value = 2 Point Value = 3 Point Value = 5 Age 41-60 Minor surgery BMI > 25 kg/m2 Swollen legs Varicose veins or History of unexplained or recurrent spontaneous Oral contraceptives or hormone replacement Sepsis (< 1 month) Serious lung disease, including pneumonia (< 1 month) Abnormal pulmonary function Acute myocardial infarction Congestive heart failure (< 1 month) History of inflammatory bowel disease Medical patient at bed rest Age 61-74 Arthroscopic surgery Major open surgery (> 45 min) Laparoscopic surgery (> 45 min) Malignancy Confined to bed (> 72 hours) Immobilizing plaster cast Central venous access Age >= 75 History of VTE Family history of VTE Factor V Leiden Prothrombin [id number] Lupus anticoagulant Anticardiolipin antibodies Elevated serum homocysteine Heparin-induced thrombocytopenia Other congenital or acquired thrombophilia Stroke (< 1 month) Elective arthroplasty Hip, pelvis, or leg fracture Acute spinal cord injury (< 1 month) Prophylaxis Regimen Total Risk Factor Score Risk Level Prophylaxis Regimen 0-1 Low Early ambulation 2 Moderate Order ONE of the following: *Sequential Compression Device (SCD) *Heparin 5000 units SQ BID 3-4 Higher Order ONE of the following medications: *Heparin 5000 units SQ TID *Enoxaparin/Lovenox 40 mg SQ daily (WT < 150 kg, CrCl > 30 mL/min) *Enoxaparin/Lovenox 30 mg SQ daily (WT < 150 kg, CrCl > 10-29 mL/min) *Enoxaparin/Lovenox 30 mg SQ BID (WT < 150 kg, CrCl > 30 mL/min) AND/OR *Sequential Compression Device (SCD) 5 or more Highest Order ONE of the following medications: *Heparin 5000 units SQ TID (Preferred with Epidurals) *Enoxaparin/Lovenox 40 mg SQ daily (WT < 150 kg, CrCl > 30 mL/min) *Enoxaparin/Lovenox 30 mg SQ daily (WT < 150 kg, CrCl > 10-29 mL/min) *Enoxaparin/Lovenox 30 mg SQ BID (WT < 150 kg, CrCl > 30 mL/min) AND *Sequential Compression Device (SCD) Assessment and Plan Assessment and Plan #1 Chest pain-admitted chest pain center. Begin ruling out for ACS with 3 sets of EKGs, cardiac enzymes, and monitored on telemetry. Will be seen and evaluated by Dr. Jaycob Hurley. Discussed likelihood of completing chemical stress test later this evening or first thing in a.m. This will be determined after evaluation by emt i/85. Patient is agreeable to plan of care. #2 Hypertension-improving, received labetalol 10 mg IV 1 dose in ER, continue metoprolol daily, consider adding second agent. Patient reluctant to add second medication, stating blood pressure within normal limits at home. This is not unreasonable, will continue to monitor. Jessica العراقي Apr 18, 2017 14:27
[2017-04-18 16:04] LABS: TROPONIN I LESS THAN 0.02 NG/ML (0.02-0.05)
[2017-04-18] MEDS: LISINOPRIL 10 MG TAB PO SCH (17:36)
[2017-04-18 19:11] LABS: TROPONIN I LESS THAN 0.02 NG/ML (0.02-0.05)
[2017-04-18] MEDS ORDERED: SODIUM CHLORIDE 0.9% FLUSH 10 ML FLUSH IV FLUSH SCH (21:00)
[2017-04-18] MEDS ORDERED: METOPROLOL TARTRATE 50 MG TAB PO SCH (21:00)
[2017-04-18] MEDS: CALCIUM/VITAMIN D 250 MG/125 U TAB PO SCH (21:31)
[2017-04-19 02:06] VITALS: PULSE 62
[2017-04-19 05:02] VITALS: BP 151/69; PULSE 61; RESP 14; TEMP 98; O2SAT 99
[2017-04-19 08:33] VITALS: BP 183/80; PULSE 66; RESP 16; TEMP 97.7; O2SAT 95
[2017-04-19] MEDS: LISINOPRIL 10 MG TAB PO SCH (08:52)
[2017-04-19] MEDS ORDERED: PANTOPRAZOLE SOD 40 MG DELAYED RELEASE TAB PO SCH (09:00)
[2017-04-19] MEDS ORDERED: REGADENOSON INJ 0.4 MG/5 ML SYR ONE (09:21)
[2017-04-19] MEDS ORDERED: cloNIDine HCL 0.1 MG TAB PO ONE (10:04)
--- NOTE | 2017-04-19 10:50 | RADRPT ---
EXAM DATE/TIME: 04/19/2017 09:17 [facility] COMPARISON: No previous studies available for comparison. INDICATIONS : Left sided chest pain for three weeks. Angina. DOSE: 26.2 mCi Tc99m Myoview at stress. 8.5 mCi Tc99m Myoview at rest. 0.4 mg Lexiscan STRESS SYMPTOMS: Heart racing, throat pressure and dyspnea. EJECTION FRACTION: 69% MEDICAL HISTORY : Carcinoma, breast. Hypertension. SURGICAL HISTORY : Mastectomy, right. Total knee replacement, right. Cholecystectomy. ENCOUNTER: Initial ACUITY: 3 weeks PAIN SCALE: 3/10 LOCATION: Left chest TECHNIQUE: The patient underwent pharmacologic stress with infusion of prescribed dose. Continuous ECG tracing was monitored during stress. Gated SPECT imaging was performed after stress and conventional SPECT i maging was performed at rest. The examination was performed on a SPECT/CT scanner, both attenuation and non-corrected datasets were reviewed. FINDINGS: DISTRIBUTION: The maximum perfused segment at stress is in the septal wall. PERFUSION STUDY: The pattern of perfusion at stress is within normal limits. GATED STUDY: There is intact wall motion and thickening without hypokinetic or dyskinetic segments. CONCLUSION: Unremarkable myocardial perfusion scan. RISK CATEGORY: Low (<1% Annual Mortality Rate) Jaycob Nickerson MD on April 19, 2017 at 10:49 Board Certified Radiologist. This report was verified electronically.
[2017-04-19 10:53] VITALS: BP 180/76
[2017-04-19 11:32] VITALS: BP 145/70; PULSE 60; RESP 18; TEMP 97.6; O2SAT 95
[2017-04-19] MEDS ORDERED: LOSA25TA PO (11:57)
--- NOTE | 2017-04-19 11:58 | HHI.DCPOC ---
Discharge Care Plan Diagnosis: (1) Chest pain (2) HTN (hypertension) Goals to Promote Your Health * To prevent worsening of your condition and complications * To maintain your health at the optimal level Directions to Meet Your Goals Take your medications as prescribed Follow your dietary instruction Follow activity as directed Keep your appointments as scheduled Take your immunizations and boosters as scheduled If your symptoms worsen call your PCP, if no PCP go to Urgent Care Center or Emergency Room Smoking is Dangerous to Your Health. Avoid second hand smoke Call the 24-hour hour crisis hotline for domestic abuse at Ramone Elliott Apr 19, 2017 11:58
[2017-04-19] MEDS ORDERED: LOSARTAN 25 MG TAB PO SCH (12:00)
[2017-04-19] MEDS: CALCIUM/VITAMIN D 250 MG/125 U TAB PO SCH (12:24)
--- NOTE | 2017-04-19 13:35 | TR ---
Date Performed: 04/19/2017 Time Performed: 09:42:23 DOCTOR: Pamela Dixon DRUG LIST: CLINICAL HISTORY: ANGINA REASON FOR TEST: Angina REASON FOR ENDING: OBSERVATION: CONCLUSION: Lexiscan stress test was performed under standard four minute protocol. Radionuclid e was injected one minute prior to ending the test. No electrocardiographic abormalities were present to suggest ischemia. Nuclear imaging and interpretation are pending. COMMENTS:
--- NOTE | 2017-04-19 13:39 | EKG ---
Date Performed: 04/18/2017 Time Performed: 11:24:13 PTAGE: 76 years EKG: Sinus rhythm WITH SINUS ARRHYTHMIA VOLTAGE CRITERIA FOR LVH NONSPECIFIC T-WAVE ABNORMALITY ABNORMAL ECG Since PREVIOUS TRACING , no significant change noted DOCTOR: Pamela Dixon Interpretating Date/Time 04/19/2017 13:37:46
--- NOTE | 2017-04-19 13:40 | EKG ---
Date Performed: 04/18/2017 Time Performed: 15:09:51 PTAGE: 76 years EKG: Sinus rhythm MINIMAL VOLTAGE CRITERIA FOR LVH, CONSIDER NORMAL VARIANT NONSPECIFIC T-WAVE ABNORMALITY ABNORMAL EC G Since PREVIOUS TRACING , no significant change noted PREVIOUS TRACIN12/30/2015 20.51 DOCTOR: Pamela Dixon Interpretating Date/Time 04/19/2017 13:38:26
--- NOTE | 2017-04-19 13:41 | EKG ---
Date Performed: 04/18/2017 Time Performed: 18:05:53 PTAGE: 76 years EKG: Sinus rhythm MINIMAL VOLTAGE CRITERIA FOR LVH, CONSIDER NORMAL VARIANT MODERATE T-WAVE ABNORMALITY, CONSIDER LATE RAL ISCHEMIA ABNORMAL ECG Since PREVIOUS TRACING , no significant change noted PREVIOUS TRACIN04/18/2017 15.09 DOCTOR: Pamela Dixon Interpretating Date/Time 04/19/2017 13:39:12
== END 2017-04-19 12:49 | disposition home or self-care (01) ==
LOC: NEPE 09:56 → NEDA 13:16 → NEPGCP 14:32
PROVIDERS: ADMIT Internal Medicine Cardiovascular Disease; ATTEND Internal Medicine Cardiovascular Disease
DX: R07.89 Other chest pain (principal); R06.02 Shortness of breath; M79.602 Pain in left arm; I10 Essential (primary) hypertension; I20.9 Angina pectoris, unspecified; I49.9 Cardiac arrhythmia, unspecified; R94.31 Abnormal electrocardiogram [ECG] [EKG]; K21.9 Gastro-esophageal reflux disease without esophagitis; N63.10 Unspecified lump in the right breast, unspecified quadrant; M79.7 Fibromyalgia; Z85.3 Personal history of malignant neoplasm of breast; Z79.899 Other long term (current) drug therapy; Z96.651 Presence of right artificial knee joint
CPT/HCPCS: 71045; 78452; 80048; 82550; 82552; 83735; 84484; 85025; 85610; 85730; 93005; 93017; 96374; 99285; A9502; G0378; J2785

== ENCOUNTER → 2017-05-03 | Outpatient (CLI) | payer MEDICARE ==
[~2017-05-03] MED LIST changes: +LOSA25TA PO; -VENTAER INH; -ZITHTAB PO
[2017-05-03 13:37] LABS: IRON (FE) 63 MCG/DL (50-170)
[2017-05-03 13:42] LABS: % SATURATION IRON PROFILE 14.2 % (20-50); FERRITIN 29 NG/ML (8-252); TOTAL IRON BINDING CAPACITY 444 MCG/DL (250-450)
[2017-05-04 13:56] LABS: SMOOTH MUSCLE TOTAL AUTOABS Negative (Negative)
[2017-05-04 14:12] LABS: ALPHA-1-ANTITRYPSIN 152 mg/dL (100 - 190)
== END ==
LOC: PLAB 09:37
PROVIDERS: ATTEND Internal Medicine Gastroenterology
DX: R10.13 Epigastric pain (principal); R10.32 Left lower quadrant pain
CPT/HCPCS: 82103; 82172; 82247; 82390; 82728; 82784; 82977; 83010; 83516; 83540; 83550; 83883; 84460; 86255; 86803

== ENCOUNTER → 2017-05-30 | Outpatient (CLI) | payer MEDICARE ==
[2017-05-30 10:45] LABS: BICARBONATE 27.3 MEQ/L (21.0-32.0); CALCIUM 8.9 MG/DL (8.5-10.1); CREATININE 0.89 MG/DL (0.50-1.00)
== END ==
LOC: PLAB 08:56
PROVIDERS: ATTEND Internal Medicine Interventional Cardiology
DX: I10 Essential (primary) hypertension (principal)
CPT/HCPCS: 36415; 80048